=== PATIENT | female | born 1980 | race African-American/Black ===

== ENCOUNTER 2018-05-23 15:04 | Emergency (ER) | payer OTHER ==
[2018-05-23 15:12] VITALS: BP 134/89
[2018-05-23] MEDS ORDERED: ACETAMINOPHEN 325 MG TABLET PO ONE (16:56)
[2018-05-23] MEDS ORDERED: DEXAMETHASONE SOD PHOS INJ 10 MG/1 ML VIAL IM ONE (17:09)
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
== END 2018-05-23 19:10 | disposition home or self-care (01) ==
LOC: ER 15:04
DX: M54.5 Low back pain (principal); M54.89 Other dorsalgia; M79.632 Pain in left forearm; M25.519 Pain in unspecified shoulder; M25.529 Pain in unspecified elbow; M25.539 Pain in unspecified wrist; V49.50XA Passenger injured in collision with unspecified motor vehicles in traffic accident, initial encounter; Z88.0 Allergy status to penicillin; Z88.1 Allergy status to other antibiotic agents; Z88.8 Allergy status to other drugs, medicaments and biological substances
CPT/HCPCS: 99283; 96372; 73090; 73130; 73060; 72110; 72070; 73110; J1100

== ENCOUNTER 2018-07-20 21:22 | Inpatient (IN) | payer OTHER ==
[2018-07-20] MEDS ORDERED: NORMAL SALINE 1000 ML 1,000 ML IV ONE (22:14)
[2018-07-20] MEDS ORDERED: MORPHINE SULFATE 10 MG/ML INJ IV ONE (22:14)
[2018-07-20] MEDS ORDERED: ONDANSETRON HCL INJ/PF 4 MG/2 ML SDV IV ONE (22:14)
--- NOTE | 2018-07-20 22:16 | ER Document Report ---
ED GI/ - General Chief Complaint: Flank Pain Stated Complaint: BLOOD IN URINE Time Seen by Provider: 07/20/18 22:08 Notes: Patient is a 38-year-old female that comes to the emergency department for chief complaint of 3 days of intermittent worsening pain in her left flank that radiates around to her mid to lower abdomen, she states over the past day she started to develop chills, she states she has vomited about 8 times today. She reports blood in her urine. She denies vaginal bleeding or discharge. She denies history of kidney stones, she has a history of cholecystectomy and appendectomy. TRAVEL OUTSIDE OF THE [place] IN LAST 30 DAYS: No - Related Data Allergies/Adverse Reactions: amoxicillin Allergy (Verified 07/20/18 23:08) ciprofloxacin [From Cipro] Allergy (Verified 07/20/18 23:08) NSAIDS (Non-Steroidal Anti-Inflamma Allergy (Verified 07/20/18 23:08) Past Medical History - General Information source: Patient - Social History Smoking Status: Never Smoker Frequency of alcohol use: None Drug Abuse: None Lives with: Family Family History: Reviewed & Not Pertinent Renal/ Medical History: Denies: Hx Peritoneal Dialysis Musculoskeletal Medical History: Reports Hx Arthritis, Reports Hx Musculoskeletal Deformity, Reports Hx Musculoskeletal Trauma Psychiatric Medical History: Reports: Hx Anxiety Past Surgical History: Reports: Hx Appendectomy, Hx Cholecystectomy - Immunizations Immunizations up to date: Yes Hx Diphtheria, Pertussis, Tetanus Vaccination: Yes Review of Systems - Review of Systems Constitutional: No symptoms reported EENT: No symptoms reported Cardiovascular: No symptoms reported Respiratory: No symptoms reported Gastrointestinal: See HPI Genitourinary: No symptoms reported Female Genitourinary: No symptoms reported Musculoskeletal: No symptoms reported Skin: No symptoms reported Hematologic/Lymphatic: No symptoms reported Neurological/Psychological: No symptoms reported Physical Exam - Vital signs Vitals: Temp Pulse Resp BP Pulse Ox 98.9 F 95 16 151/111 H 95 07/20/18 21:45 07/20/18 21:45 07/20/18 21:45 07/20/18 21:45 07/20/18 21:45 - Notes Notes: GENERAL: Patient appears to be in pain, restless, moderate distress HEAD: Normocephalic, atraumatic. EYES: Pupils equal, round, and reactive to light. Extraocular movements intact. ENT: Oral mucosa dry, tongue midline. NECK: Full range of motion. Supple. Trachea midline. LUNGS: Clear to auscultation bilaterally, no wheezes, rales, or rhonchi. No respiratory distress. HEART: Regular rate and rhythm. No murmur ABDOMEN: Generalized abdominal tenderness without a particular area of guarding or rebound tenderness. GENITOURINARY: Deferred EXTREMITIES: Moves all 4 extremities spontaneously. No edema, normal radial and dorsalis pedis pulses bilaterally. No cyanosis. BACK: no cervical, thoracic, lumbar midline tenderness. No saddle anesthesia, normal distal neurovascular exam. NEUROLOGICAL: Alert and oriented x3. Normal speech. [cranial nerves II through XII grossly intact]. PSYCH: Mildly anxious and agitated SKIN: Warm, dry, normal turgor. No rashes or lesions noted. Course - Re-evaluation Re-evalutation: Patient appears to be in pain, moderate distress, she is rocking in the bed, she did vomit on the room. I discussed with patient. She does not have a fever , urine is already resulted and shows hematuria without infection, test is negative. Decision was made to proceed less invasively, KUB and ultrasound performed. Ultrasound showing possible left punctate stones without hydronephrosis. Patient is extremely difficult to obtain IV access on, nurses tried several times, I performed several attempts, patient vomited multiple more times. She keeps complaining that she feels a sharp spasming burning pain in her left mid to lower abdomen that radiates around her flank and then she begins to vomit again. She does not have any chest pain. She did not have any hematemesis. I finally performed an arterial stick to obtain labs to rule out pancreatitis or other concerning abnormality. CBC unremarkable, chemistry shows low bicarbonate consistent with dehydration/ vomiting, chemistry is unremarkable otherwise, lipase is normal. I reevaluated patient again and she again appears to be in pain and vomiting multiple times. CAT scan was performed to rule out perforation, obstruction, or other abnormality, unfortunately no contrast was able to be given because of her vomiting and lack of IV access. CT without any acute abnormality. Patient vomited again. She has vomited approximately 10 or more times in the department now. I discussed with Dr. Russell, he went into the room and attempted IV access but we were unable to get it. He did discuss with the patient. Because of her repeated vomiting, low bicarbonate, tachycardia, he recommends central line placement and rehydration with admission to the hospital for intractable vomiting. Patient is agreeable with this plan. Central line was placed, IV fluids and additional medications initiated, will discuss with hospitalist for admission. 07/21/18 06:[address] Rizzo, hospitalist, patient will be discussed with daytime team coming on for admission to the hospital. Patient is much improved at this time after IV fluids infusing medications given through IV. Tachycardia starting to improve. - Vital Signs Vital signs: Temp Pulse Resp BP Pulse Ox 99.2 F 127 H 20 136/101 H 100 07/21/18 01:50 07/21/18 01:50 07/21/18 01:50 07/21/18 01:50 07/21/18 01:50 - Laboratory Result Diagrams: 07/21/18 01:40 07/21/18 01:40 Laboratory results interpreted by me: 07/20/18 07/21/18 07/21/18 22:02 01:40 01:40 RDW 15.0 H Eosinophils % 9.6 H Chloride 110 H Carbon Dioxide 17 L Urine Protein 100 H Urine Blood LARGE H Procedures - Central Line left IJ Consent obtained: Yes - verbal Central line pre-insertion: Sterile PPE donned, Chloraprep applied, Sterile drapes applied Central line lumen type: Triple Anesthetic type: 1% Lidocaine mL's of anesthesia: 5 Ultrasound guided: Yes Line secured with sutures: Yes Central line post-insertion: Blood return from lumens, Biopatch applied, Sutured , Sterile dressing applied, Position confirmed w/ CXR Number of attempts: 1 Complications: No Notes: Performed under supervision of Dr. Russell. Discharge - Discharge Clinical Impression: Flank pain Intractable vomiting Qualifiers: Vomiting type: unspecified Nausea presence: with nausea Qualified Code(s): R11.2 - Nausea with vomiting, unspecified Abdominal pain Qualifiers: Abdominal location: generalized Qualified Code(s): R10.84 - Generalized abdominal pain Hematuria Qualifiers: Hematuria type: gross Qualified Code(s): R31.0 - Gross hematuria Condition: Stable Disposition: ADMITTED OBSERVATION Admitting Provider: Hospitalist Unit Admitted: Telemetry
[2018-07-20 22:36] LABS: APPEARANCE,URINE SLIGHTLY-CLOUDY; BILIRUBIN,URINE NEGATIVE (NEGATIVE); COLOR,URINE AMBER; GLUCOSE, URINE NEGATIVE (NEGATIVE); KETONES,URINE NEGATIVE (NEGATIVE); LEUKOCYTE ESTERASE,URINE NEGATIVE (NEGATIVE); NITRITE,URINE NEGATIVE (NEGATIVE); PROTEIN,URINE 100 mg/dL (NEGATIVE); URINE SPECIFIC GRAVITY 1.017; UROBILINOGEN,URINE NEGATIVE mg/dL (<2.0)
[2018-07-20] MEDS ORDERED: HYDROMORPHONE HCL INJ/PF 2 MG/ML AMPULE IM ONE (23:51)
[2018-07-20] MEDS ORDERED: ONDANSETRON 4 MG TAB.RAPDIS PO ONE (23:51)
[2018-07-21] MEDS ORDERED: PROMETHAZINE HCL INJ 25 MG/1 ML VIAL IM ONE (00:10)
--- NOTE | 2018-07-21 01:02 | RADIOLOGY REPORT (SQ) ---
EXAM DESCRIPTION: US RETROPERITONEUM LIMITED COMPLETED DATE/TME: 07/20/2018 22:59 CLINICAL HISTORY: abd and flank pain; stone? COMPARISON: None. TECHNIQUE: Real-time sonographic images of the retroperitoneum were obtained using a curved multihertz transducer. FINDINGS: The visualized portions of the aorta and IVC are unremarkable. The right kidney measures 9.8 cm in length. The left kidney measures 10.6 cm in length. Possible punctate echogenic focus involving the left kidney. No solid renal mass or hydronephrosis. The urinary bladder is unremarkable. Increased echogenicity of the liver noted compatible with hepatic steatosis. IMPRESSION: 1. Possible punctate nonobstructing left nephrolithiasis. No hydronephrosis.
--- NOTE | 2018-07-21 01:04 | RADIOLOGY REPORT (SQ) ---
EXAM DESCRIPTION: XR ABDOMEN 1 VIEW (KUB) COMPLETED DATE/TME: 07/20/2018 22:59 CLINICAL HISTORY: abd and flank pain COMPARISON: None. FINDINGS: Bowel: No dilated loops of large or small bowel. Peritoneum: No free intraperitoneal air identified. Solid organs: No definite organomegaly. Calcifications: No abnormal calcifications. Bones: No acute osseous abnormalities. Other: Prior cholecystectomy. IMPRESSION: Nonobstructive bowel gas pattern. No nephrolithiasis definitely identified.
[2018-07-21] MEDS ORDERED: DIPHENHYDRAMINE HCL 50 MG/ML VIAL IM ONE (01:38)
[2018-07-21] MEDS ORDERED: HYDROMORPHONE HCL INJ/PF 2 MG/ML AMPULE IV ONE ×3 (01:39→20:00)
[2018-07-21] MEDS ORDERED: HYDROMORPHONE HCL INJ/PF 2 MG/ML AMPULE IM ONE (01:49)
[2018-07-21 02:06] LABS: ABSOLUTE BASOPHILS # (AUTO) 0.1 10^3/uL (0.0-0.2); ABSOLUTE EOSINOPHILS # (AUTO) 0.5 10^3/uL (0.0-0.6); ABSOLUTE LYMPHOCYTES (AUTO) 1.6 10^3/uL (0.5-4.7); ABSOLUTE MONOCYTES (AUTO) 0.5 10^3/uL (0.1-1.4); ABSOLUTE NEUT (AUTO) 2.8 10^3/uL (1.7-8.2); BASOPHILS % (AUTO) 1.1 % (0-2); EOSINOPHILS % (AUTO) 9.6 % (0-6); HEMATOCRIT 36.7 % (36.0-47.0); HEMOGLOBIN 12.5 g/dL (12.0-15.5); LYMPHOCYTES % (AUTO) 28.6 % (13-45); MEAN CORPUSCULAR HEMOGLOBIN 28.5 pg (27.0-33.4); MEAN CORPUSCULAR VOLUME 84 fl (80-97); PLATELET COUNT 246 10^3/uL (150-450); RED BLOOD COUNT 4.39 10^6/uL (3.72-5.28); SEGMENTED NEUTROPHILS % (AUTO) 50.7 % (42-78); TOTAL CELLS COUNTED % (AUTO) 100 %; WHITE BLOOD COUNT 5.5 10^3/uL (4.0-10.5)
[2018-07-21 02:17] LABS: ALANINE AMINOTRANSFERASE 18 U/L (9-52); ALBUMIN 4.4 g/dL (3.5-5.0); ALKALINE PHOSPHATASE 124 U/L (38-126); ANION GAP 15 (5-19); ASPARTATE AMINO TRANSFERASE 16 U/L (14-36); BILIRUBIN,DIRECT 0.2 mg/dL (0.0-0.4); BILIRUBIN,TOTAL 0.5 mg/dL (0.2-1.3); BLOOD UREA NITROGEN 7 mg/dL (7-20); CALCIUM 9.5 mg/dL (8.4-10.2); CARBON DIOXIDE 17 mmol/L (22-30); CHLORIDE 110 mmol/L (98-107); GLUCOSE 98 mg/dL (75-110); POTASSIUM 4.1 mmol/L (3.6-5.0); SODIUM 141.7 mmol/L (137-145); TOTAL PROTEIN 7.6 g/dL (6.3-8.2)
[2018-07-21] MEDS ORDERED: LIDOCAINE 2% VISCOUS SOLN 20 ML UDCUP PO ONE (02:23)
[2018-07-21] MEDS ORDERED: MAG HYDROX/AL HYDROX/SIMETH SUSP 30 ML UDCUP PO ONE (02:23)
[2018-07-21] MEDS ORDERED: METOCLOPRAMIDE HCL ORAL SOLN 10 MG/10 ML UDCUP PO ONE (02:23)
--- NOTE | 2018-07-21 03:29 | RADIOLOGY REPORT (SQ) ---
EXAM DESCRIPTION: CT ABDOMEN WITHOUT IV CONTRAST COMPLETED DATE/TME: 07/21/2018 02:49 CLINICAL HISTORY: kidney stone; persistent vomiting COMPARISON: None Available. TECHNIQUE: CT of the abdomen and pelvis without IV contrast. Evaluation of the solid organs and vasculature is suboptimal due to lack of IV contrast. DLP: 1187.86 mGy-cm FINDINGS: Lung Bases: The visualized lung bases are clear. Bones: No destructive bone lesions identified. Abdomen: Liver: The liver has normal size and density. Gallbladder: Prior cholecystectomy. Spleen, Pancreas, and Adrenal Glands: The spleen, pancreas, and adrenal glands are unremarkable. Kidneys: The kidneys have normal size and contour without evidence of hydronephrosis. No obstructing ureteral calculi. Vasculature: The aorta and IVC have normal caliber and position. Stomach: The stomach and duodenum have normal course. Other: No free intraperitoneal air. No free fluid or lymphadenopathy. Pelvis: Bladder: Urinary bladder is unremarkable. Bowel: No dilated loops of large or small bowel. Appendix: Prior appendectomy. Pelvis: Uterus is not enlarged. IMPRESSION: 1. No acute inflammatory or obstructive process identified. This exam was performed according to our departmental dose-optimization program, which includes automated exposure control, adjustment of the mA and/or kV according to patient size and/or use of iterative reconstruction technique.
[2018-07-21] MEDS ORDERED: NORMAL SALINE 1000 ML 1,000 ML IV ONE ×4 (05:44→09:40)
[2018-07-21] MEDS ORDERED: ONDANSETRON HCL INJ/PF 4 MG/2 ML SDV IV ONE (05:45)
[2018-07-21] MEDS ORDERED: MORPHINE SULFATE 10 MG/ML INJ IV ONE (05:45)
--- NOTE | 2018-07-21 06:12 | RADIOLOGY REPORT (SQ) ---
EXAM DESCRIPTION: XR CHEST 1 VIEW COMPLETED DATE/TME: 07/21/2018 05:43 CLINICAL HISTORY: s/p central line COMPARISON: None. FINDINGS: Single frontal view of the chest. Left IJ central venous catheter with tip in the SVC. Leads overlie the chest. The cardiomediastinal silhouette has normal size and contour. No consolidation, pneumothorax, or pleural effusion. No displaced rib fractures identified. Upper abdominal soft tissues are unremarkable. IMPRESSION: 1. No acute pulmonary process identified. Left IJ central venous catheter in appropriate radiographic position.
[2018-07-21] MEDS ORDERED: DIPHENHYDRAMINE HCL 50 MG/ML VIAL IV ONE (06:42)
[2018-07-21] MEDS ORDERED: DIPHENHYDRAMINE HCL 50 MG/ML VIAL ONE ×2 (06:48→20:43)
[2018-07-21 07:31] LABS: URINE AMPHETAMINES SCREEN NEGATIVE; URINE BARBITURATES SCREEN NEGATIVE; URINE BENZODIAZEPINES SCREEN UNCONFIRMED POSITIVE; URINE COCAINE SCREEN NEGATIVE; URINE MARIJUANA (THC) SCREEN NEGATIVE; URINE METHADONE SCREEN NEGATIVE; URINE PHENCYCLIDINE SCREEN NEGATIVE
[2018-07-21] MEDS ORDERED: PROMETHAZINE HCL INJ 25 MG/1 ML VIAL IV ONE (08:41)
[2018-07-21] MEDS ORDERED: HYDROMORPHONE HCL INJ/PF 2 MG/ML AMPULE ONE (08:43)
[2018-07-21] MEDS ORDERED: PROMETHAZINE HCL INJ 25 MG/1 ML VIAL ONE (08:48)
[2018-07-21] MEDS ORDERED: ACETAMINOPHEN 650 MG SUPP.RECT PR PRN (08:55)
[2018-07-21] MEDS ORDERED: GLUCAGON,HUMAN RECOMB 1 MG INJ SUBCUT PRN (08:55)
[2018-07-21] MEDS ORDERED: PROMETHAZINE HCL INJ 25 MG/1 ML VIAL IV PRN (08:55)
[2018-07-21] MEDS ORDERED: DEXTROSE 50%-WATER 25 GM/50 ML DISP.SYRIN IV PRN ×2 (08:55)
[2018-07-21] MEDS ORDERED: DEXTROSE 40% GEL 15 GM TUBE PO PRN ×2 (08:55)
[2018-07-21] MEDS ORDERED: ONDANSETRON 4 MG TAB.RAPDIS PO PRN ×2 (08:55→15:00)
[2018-07-21] MEDS: HYDROMORPHONE HCL INJ/PF 2 MG/ML AMPULE IV PRN ×5 (10:27→23:27)
[2018-07-21] MEDS: PANTOPRAZOLE SODIUM 40 MG VIAL IV SCH ×2 (10:42→21:55)
[2018-07-21] MEDS: PHENAZOPYRIDINE HCL 100 MG TABLET PO SCH ×3 (10:43→21:53)
[2018-07-21] MEDS: ENOXAPARIN SODIUM INJ 30 MG/0.3 ML DISP.SYRIN SUBCUT SCH (10:43)
[2018-07-21] MEDS: NORMAL SALINE 1000 ML 1,000 ML IV PRN ×3 (12:59→21:53)
[2018-07-21] MEDS: PROMETHAZINE HCL INJ 25 MG/1 ML VIAL IV PRN ×2 (17:23→23:20)
--- NOTE | 2018-07-21 17:44 | PDOC H&P ---
History of Present Illness Admission Date/PCP: 07/21/18 08:55 Patient complains of: L FLANK PAIN History of Present Illness: YODIT LR is a 38 year old female who presented to the emergency department with 2-3 days of intractable vomiting and left flank pain. The patient states her flank pain radiates around her abdomen to her left groin. She describes the pain as cramping and sharp, intermittent in nature. The patient took Tylenol for her symptoms but states it offered no relief. The patient states that urination exacerbates her flank pain. She endorses mild dysuria. The patient denies diarrhea or constipation, states she has been experiencing regular bowel movements. Reports a subjective fever of 103, denies chills or recent ill contacts. Her symptoms have been keeping her up at night which prompted the patient to come to the emergency department. Vital signs upon arrival include BP 151/111 HR 95 RR 20 T 98.9 SPO2 95%. EKG shows sinus tachycardia, no evidence of acute ischemia or infarction. Laboratory studies were completely benign. Urinalysis was normal. Additionally, the patient has not been febrile since arrival. Renal ultrasound revealed possible punctate left nephrolithiasis. No abnormal findings on KUB and abdominal CT. The patient was witnessed to have 8-12 episodes of vomiting while in the ED. A central line was placed for rehydration following numerous attempts at peripheral IV insertion. Upon assessment, the patient is sitting up in bed. She is rocking back and forth with her hand grasping her left abdomen. The patient is alert and oriented x3, she is able to answer all questions appropriately. Throughout our conversation, the more she is talking and is distracted, the less symptomatic she appears. Her lungs are clear to auscultation. S1-S2. Palpable pulses in upper and lower extremities. No evidence of peripheral edema. (+) L CVA tenderness. In fact, palpating the left CVA region elicited tears from the patient. The remainder of her abdominal exam was completely benign. The patient had just urinated prior to assessment, and upon inspection it appears dark rita. There is no sediment or blood in her urine. The patient was asked about illicit drug use and she vehemently denies. Her name and were entered into the [employer] Controlled Substance Database and there were no reports of any narcotic prescriptions filled in her name. Plan is to admit the patient to the hospitalist service for intractable vomiting. Past Medical History Cardiac Medical History: Reports: None Pulmonary Medical History: Reports: None EENT Medical History: Reports: None Neurological Medical History: Reports: None Endocrine Medical History: Reports: None Renal/ Medical History: Reports: None Malignancy Medical History: Reports: None GI Medical History: Reports: None Musculoskeltal Medical History: Reports: Arthritis Skin Medical History: Reports: None Psychiatric Medical History: Reports: General Anxiety Disorder, Post Traumatic Stress Disorder, Other - INSOMNIA Hematology: Reports: Sickle Cell Disease - PATIENT REPORTS SHE HAS SICKLE CELL TRAIT Infectious Medical History: Reports: None Past Surgical History Past Surgical History: Reports: Appendectomy, Cholecystectomy, Tonsillectomy Social History Information Source: Patient Lives with: Family Smoking Status: Never Smoker Frequency of Alcohol Use: Occasional Hx Recreational Drug Use: No Drugs: None Hx Prescription Drug Abuse: No - Advance Directive Resuscitation Status: Full Code Family History Family History: CAD, DM, Hypertension Parental Family History Reviewed: Yes Children Family History Reviewed: NA Sibling(s) Family History Reviewed.: NA Medication/Allergy Home Medications: Alprazolam [Xanax] 1 mg PO BIDP PRN 07/21/18 Carisoprodol [Soma 350 Mg Tablet] 350 mg PO Q8 07/21/18 Folic Acid [Folvite 1 mg Tablet] 1 mg PO DAILY 07/21/18 Hydroxyurea [Hydrea 500 Mg Capsule] 500 mg PO DAILY 07/21/18 Multivitamin [One-A-Day Essential] 1 each PO DAILY 07/21/18 Sertraline HCl [Zoloft] 25 mg PO DAILY 07/21/18 Zolpidem Tartrate [Ambien 5 mg Tablet] 5 mg PO HSP PRN 07/21/18 Allergies/Adverse Reactions: amoxicillin Allergy (Verified 07/20/18 23:08) ciprofloxacin [From Cipro] Allergy (Verified 07/20/18 23:08) NSAIDS (Non-Steroidal Anti-Inflamma Allergy (Verified 07/20/18 23:08) Review of Systems All systems: reviewed and no additional remarkable complaints except as stated Physical Exam Vital Signs: Temp Pulse Resp BP Pulse Ox 97.5 F 80 12 118/65 100 07/21/18 15:09 07/21/18 15:09 07/21/18 15:09 07/21/18 15:09 07/21/18 15:09 Intake & Output 07/20/18 07/21/18 07/22/18 06:59 06:59 06:59 Intake Total 1575 Balance 1575 General appearance: PRESENT: morbidly obese Head exam: PRESENT: atraumatic Eye exam: PRESENT: conjunctiva pink, PERRLA Mouth exam: PRESENT: moist, tongue midline Neck exam: PRESENT: full ROM Respiratory exam: PRESENT: clear to auscultation naila, symmetrical, unlabored Cardiovascular exam: PRESENT: RRR, +S1, +S2 Pulses: PRESENT: normal radial pulses, normal dorsalis pedis pul Vascular exam: PRESENT: normal capillary refill GI/Abdominal exam: PRESENT: normal bowel sounds, soft, other - (+) DRY HEAVING. ABSENT: distended, guarding, tenderness Rectal exam: PRESENT: deferred Extremities exam: PRESENT: full ROM. ABSENT: joint swelling, pedal edema Musculoskeletal exam: PRESENT: ambulatory, full ROM Neurological exam: PRESENT: alert, awake, oriented to person, oriented to place , oriented to time, oriented to situation Psychiatric exam: PRESENT: appropriate affect Skin exam: PRESENT: dry, intact, normal color Results Impressions: KUB X-Ray 07/20/18 22:59 IMPRESSION: Nonobstructive bowel gas pattern. No nephrolithiasis definitely identified. Renal Ultrasound 07/20/18 22:59 IMPRESSION: 1. Possible punctate nonobstructing left nephrolithiasis. No hydronephrosis. Abdomen CT 07/21/18 02:49 IMPRESSION: 1. No acute inflammatory or obstructive process identified. This exam was performed according to our departmental dose-optimization program, which includes automated exposure control, adjustment of the mA and/or kV according to patient size and/or use of iterative reconstruction technique. Chest X-Ray 07/21/18 05:43 IMPRESSION: 1. No acute pulmonary process identified. Left IJ central venous catheter in appropriate radiographic position. Status: Imported from PACS Assessment & Plan - Diagnosis (1) Intractable vomiting Qualifiers: Vomiting type: unspecified Nausea presence: with nausea Qualified Code(s) : R11.2 - Nausea with vomiting, unspecified Is this a current diagnosis for this admission?: Yes Plan: Unclear etiology, possibly secondary to severe pain No evidence of obstruction on imaging PRN Zofran ODT and phenergan IV Resuscitated with 3 L IVF bolus, continue maintenance fluids (2) Abdominal pain Qualifiers: Abdominal location: generalized Qualified Code(s): R10.84 - Generalized abdominal pain Is this a current diagnosis for this admission?: Yes Plan: Unclear etiology. Abdominal CT, renal ultrasound and KUB all negative Possible nonobstructive punctate L renal calculi seen on Renal US but this does not explain the severity of the patient's symptoms. Laboratory studies completely unremarkable Symptomatically treating pain with as needed Dilaudid (3) Sickle cell anemia Qualifiers: Sickle-cell associated disorders: with unspecified crisis Qualified Code(s) : D57.00 - Hb-SS disease with crisis, unspecified; D57.0 - Hb-SS disease with crisis Is this a current diagnosis for this admission?: Yes Plan: The patient states she has sickle cell 'trait' Unfortunately, her [id number] doctor has '' and she did not see another physician since he No way to obtain medical records from previous physician Plan for in-house sickle cell screening - Time Time Spent: 30 to 50 Minutes Medications reviewed and adjusted accordingly: Yes Anticipated discharge: Home Within: within 48 hours - Inpatient Certification Based on my medical assessment, after consideration of the patient's comorbidities, presenting symptoms, or acuity I expect that the services needed warrant INPATIENT care.: Yes I certify that my determination is in accordance with my understanding of Medicare's requirements for reasonable and necessary INPATIENT services [42 CFR 412.3e].: Yes Medical Necessity: Need For IV Fluids - Plan Summary Plan Summary: CONTINUOUS IVF. ANTIEMETICS. PRN PAIN MEDICATION.
[2018-07-21] MEDS ORDERED: FAMOTIDINE INJ/PF 20 MG/2 ML SDV IV ONE (20:19)
[2018-07-21] MEDS ORDERED: HYDROCORTISONE SOD SUCCINATE INJ/PF 100 MG/2 ML SDV ONE (20:24)
[2018-07-21] MEDS ORDERED: LORAZEPAM INJ 2 MG/1 ML VIAL ONE (20:37)
[2018-07-21] MEDS ORDERED: MIDAZOLAM 2 MG/2 ML INJ ONE (21:09)
--- NOTE | 2018-07-21 23:12 | RADIOLOGY REPORT (SQ) ---
EXAM DESCRIPTION: CT ABDOMEN PELVIS WITH IV CONTRAST, CT CHEST WITH IV CONTRAST COMPLETED DATE/TME: 07/21/2018 00:00 CLINICAL HISTORY: 38 years, Female, intractable nausea and vomiting with persistent ab COMPARISON: None. TECHNIQUE: CT of the chest, abdomen and pelvis was done with intravenous contrast. No oral contrast was given for the study. Images stored on PACS. All CT scanners at this facility use dose modulation, iterative reconstruction, and/or weight based dosing when appropriate to reduce radiation dose to as low as reasonably achievable (ALARA). [facility]: Dose Right [facility]: CareDose [facility]: Dose Right [facility]: Teradose 4D [facility]: [employer] LIMITATIONS: None. FINDINGS: There are no discrete airspace infiltrates pneumothoraces or pleural effusions. There is no pericardial effusion. There is no pathological lymphadenopathy in the mediastinum, hilar regions or the bilateral supraclavicular or axillary regions. There is no thoracic aortic aneurysm or dissection. There is prior cholecystectomy. The liver, pancreas, bilateral adrenal glands, spleen and the bilateral kidneys enhance in a normal fashion. There is no small or large bowel obstruction, ileitis or acute diverticulitis. There is no acute appendicitis. There is no ascites. There is no pathological lymphadenopathy in the abdomen or the pelvis. There is no abdominal aortic aneurysm or dissection. The thoracic and the lumbar spine are unremarkable. An anteverted uterus is seen IMPRESSION: There are no acute or significant findings in the chest, abdomen or the pelvis TECHNICAL DOCUMENTATION: Quality ID # 436: Final reports with documentation of one or more dose reduction techniques (e.g., Automated exposure control, adjustment of the mA and/or kV according to patient size, use of iterative reconstruction technique) 2010 [employer]- All Rights Reserved
--- NOTE | 2018-07-21 23:23 | Progress Note ---
Provider Note Provider Note: Patient complaining of excruciating left abdominal pain, requesting frequent doses of dilauded, decided to send her for CT chest/abd/pelvis with contrast to make sure we are not missing any diagnosis. Unfortunately after contrast given patient developed throat itchiness and SOB. Given 100mg IV solucortef, 20mg IV Pepcid and 0.2mg of SC epinephrine, not proven symptoms, patient was transferred to a trauma bed in the emergency department. Anesthesia was called for possible intubation, they recommended to nebulized the patient with racemic epinephrine and was given 25 mg of iv Benadryl brought by anesthesia as the hospital is in shortage of this medication. 2 mg of IV Ativan and and 2 mg of IV Versed given. Patient states that she did not have any improvement of her symptoms and has persistent cough, is still with throat itching and shortness of breath sensation. Patient did not have oxygen desaturation at any time and was placed on oxygen via nasal cannula at 4 L. At some point suspected that the patient might have a panic attack. Patient transferred to intensive care unit, given 1 more milligram of IV Versed. Patient symptoms improved. This can be a combination of allergy to IV contrast with a component of anxiety/ panic attacks. Patient did not need for intubation and is comfortable on oxygen via nasal cannula. The physical examination was remarkable for bilateral wheezing which improved after medications given. Patient did not have any rash, hives or tongue / throat swelling. Blood pressure at some point very elevated at 182/140, likely secondary to her symptomatology in addition to epinephrine use.
[2018-07-21] MEDS ORDERED: ZOLPIDEM TARTRATE 5 MG TABLET PO ONE (23:45)
[2018-07-21] MEDS: LORAZEPAM INJ 2 MG/1 ML VIAL IV PRN (23:56)
[2018-07-22] MEDS: NORMAL SALINE 1000 ML 1,000 ML IV PRN ×2 (03:35→10:49)
[2018-07-22] MEDS: PROMETHAZINE HCL INJ 25 MG/1 ML VIAL IV PRN ×3 (03:36→11:52)
[2018-07-22] MEDS: LORAZEPAM INJ 2 MG/1 ML VIAL IV PRN ×2 (03:36→07:50)
[2018-07-22] MEDS: HYDROMORPHONE HCL INJ/PF 2 MG/ML AMPULE IV PRN ×2 (03:36→07:50)
[2018-07-22] MEDS: PHENAZOPYRIDINE HCL 100 MG TABLET PO SCH ×2 (05:12→17:54)
[2018-07-22 05:26] LABS: HEMATOCRIT 31.3 % (36.0-47.0); HEMOGLOBIN 10.5 g/dL (12.0-15.5); MEAN CORPUSCULAR HEMOGLOBIN 28.4 pg (27.0-33.4); MEAN CORPUSCULAR HGB CONC 33.7 g/dL (32.0-36.0); MEAN CORPUSCULAR VOLUME 84 fl (80-97); PLATELET COUNT 185 10^3/uL (150-450); RED BLOOD COUNT 3.71 10^6/uL (3.72-5.28); RED CELL DISTRIBUTION WIDTH 14.9 % (11.5-14.0); WHITE BLOOD COUNT 7.7 10^3/uL (4.0-10.5)
[2018-07-22 06:02] LABS: ALANINE AMINOTRANSFERASE 19 U/L (9-52); ALBUMIN 3.5 g/dL (3.5-5.0); ALKALINE PHOSPHATASE 120 U/L (38-126); ANION GAP 8 (5-19); ASPARTATE AMINO TRANSFERASE 26 U/L (14-36); BILIRUBIN,DIRECT 0.2 mg/dL (0.0-0.4); BILIRUBIN,TOTAL 0.5 mg/dL (0.2-1.3); BLOOD UREA NITROGEN 7 mg/dL (7-20); CALCIUM 8.9 mg/dL (8.4-10.2); CARBON DIOXIDE 23 mmol/L (22-30); CHLORIDE 109 mmol/L (98-107); CREATINE KINASE 77 U/L (30-135); GLUCOSE 105 mg/dL (75-110); LIPASE 84.7 U/L (23-300); POTASSIUM 4.4 mmol/L (3.6-5.0); SODIUM 140.3 mmol/L (137-145); TOTAL PROTEIN 6.3 g/dL (6.3-8.2)
[2018-07-22] MEDS ORDERED: HYDROCODONE/ACETAMINOPHEN 5-325 MG TABLET PO PRN ×2 (08:13)
[2018-07-22] MEDS ORDERED: DIPHENHYDRAMINE HCL 25 MG CAPSULE PO PRN (08:30)
[2018-07-22] MEDS ORDERED: MORPHINE SULFATE 10 MG/ML INJ IV PRN ×2 (09:49→13:55)
[2018-07-22] MEDS: AMLODIPINE BESYLATE 5 MG TABLET PO SCH (10:46)
[2018-07-22] MEDS: ENOXAPARIN SODIUM INJ 30 MG/0.3 ML DISP.SYRIN SUBCUT SCH (10:46)
[2018-07-22] MEDS: PANTOPRAZOLE SODIUM 40 MG VIAL IV SCH (10:46)
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
[2018-07-22] MEDS: HYDROCODONE/ACETAMINOPHEN 5-325 MG TABLET PO PRN ×2 (15:07→21:04)
[2018-07-22] MEDS: PROMETHAZINE HCL 25 MG TABLET PO PRN (16:03)
[2018-07-22] MEDS ORDERED: TAMSULOSIN HCL 0.4 MG CAP.SR.24H PO SCH (18:00)
[2018-07-22] MEDS ORDERED: ZOLPIDEM TARTRATE 5 MG TABLET PO SCH (22:00)
[2018-07-23] MEDS: PROMETHAZINE HCL 25 MG TABLET PO PRN (04:39)
[2018-07-23] MEDS: HYDROCODONE/ACETAMINOPHEN 5-325 MG TABLET PO PRN ×2 (04:39→08:45)
[2018-07-23 05:50] LABS: APPEARANCE,URINE CLEAR; BILIRUBIN,URINE NEGATIVE (NEGATIVE); COLOR,URINE YELLOW; GLUCOSE, URINE NEGATIVE (NEGATIVE); KETONES,URINE NEGATIVE (NEGATIVE); LEUKOCYTE ESTERASE,URINE NEGATIVE (NEGATIVE); NITRITE,URINE NEGATIVE (NEGATIVE); PROTEIN,URINE NEGATIVE (NEGATIVE); UROBILINOGEN,URINE NEGATIVE mg/dL (<2.0)
[2018-07-23 05:55] LABS: URINE SPECIFIC GRAVITY 1.009
[2018-07-23 06:42] LABS: HEMATOCRIT 31.8 % (36.0-47.0); HEMOGLOBIN 10.6 g/dL (12.0-15.5); MEAN CORPUSCULAR HEMOGLOBIN 28.2 pg (27.0-33.4); MEAN CORPUSCULAR HGB CONC 33.4 g/dL (32.0-36.0); MEAN CORPUSCULAR VOLUME 84 fl (80-97); PLATELET COUNT 190 10^3/uL (150-450); RED BLOOD COUNT 3.77 10^6/uL (3.72-5.28); RED CELL DISTRIBUTION WIDTH 14.7 % (11.5-14.0)
[2018-07-23] MEDS ORDERED: PANTOPRAZOLE SODIUM 40 MG VIAL IV SCH (10:00)
[2018-07-23] MEDS: AMLODIPINE BESYLATE 5 MG TABLET PO SCH (10:37)
[2018-07-23] MEDS: ENOXAPARIN SODIUM INJ 30 MG/0.3 ML DISP.SYRIN SUBCUT SCH (10:38)
--- NOTE | 2018-07-23 12:27 | RADIOLOGY REPORT (SQ) ---
EXAM DESCRIPTION: SOFT TISSUE NECK COMPLETED DATE/TIME: 07/23/2018 12:17 pm REASON FOR STUDY: dyspnea; pruritis COMPARISON: None. NUMBER OF VIEWS: Two views. TECHNIQUE: AP and lateral radiographic image of the soft tissues of the neck. LIMITATIONS: None. FINDINGS: EPIGLOTTIS: Normal. Contour normal. Aryepiglottic folds normal. PREVERTEBRAL SOFT TISSUES: Normal. No soft tissue swelling. SUBGLOTTIC AREA: Normal. No narrowing. RETROPHARYNGEAL SPACE: Normal. No soft tissue masses. BONES: No significant findings. LUNG APICES: Normal. OTHER: Left jugular central line tip superior vena cava IMPRESSION: NEGATIVE STUDY OF THE SOFT TISSUES OF THE NECK. TECHNICAL DOCUMENTATION: JOB ID: [id number] [employer]- All Rights Reserved Reading location - IP/workstation name: [email or web address]
[2018-07-23] MEDS ORDERED: FAMOTIDINE INJ/PF 20 MG/2 ML SDV IV ONE (12:30)
[2018-07-23] MEDS ORDERED: DIPHENHYDRAMINE HCL 50 MG/ML VIAL IV ONE (12:30)
[2018-07-23] MEDS ORDERED: HALOPERIDOL LACTATE INJ 5 MG/1 ML VIAL IV ONE (12:30)
[2018-07-23 13:58] VITALS: BP 100/85
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
== END 2018-07-23 14:29 | disposition home or self-care (01) | DRG 694 ==
LOC: ER 21:22 → EH 07-21 06:31 → 3S 07-21 08:00 → OBSVTOIN 07-21 08:55 → ICU 07-21 21:50 → 5 07-22 17:15
PROVIDERS: ADMIT Internal Medicine; ATTEND Internal Medicine
PROC: 02HV33Z Insertion of Infusion Device into Superior Vena Cava, Percutaneous Approach (ICD-10-PCS; principal; 2018-07-21)
DX: N20.0 Calculus of kidney (principal); Z68.42 Body mass index [BMI] 45.0-49.9, adult; R31.0 Gross hematuria; E86.0 Dehydration; R06.02 Shortness of breath; T50.8X5A Adverse effect of diagnostic agents, initial encounter; Y92.238 Other place in hospital as the place of occurrence of the external cause; D64.9 Anemia, unspecified; F19.10 Other psychoactive substance abuse, uncomplicated; F60.9 Personality disorder, unspecified; F41.1 Generalized anxiety disorder; F43.10 Post-traumatic stress disorder, unspecified; E66.01 Morbid (severe) obesity due to excess calories
CPT/HCPCS: 36415; 70360; 71045; 71260; 74018; 74150; 74177; 76775; 80053; 80307; 81001; 81025; 82550; 82962; 83690; 83735; 85025; 85027; 85660; 96372; 99285; C1751; J1170; J1200; J1630; J1650; J2060; J2250; J2270; J2405; J2550; J3490; J7030; S0028; S0119; S0164